=== PATIENT | male | born 1985 | race Caucasian/White ===

== ENCOUNTER 2016-10-06 09:50 | Emergency (ER) | payer OTHER ==
[~2016-10-06 09:50] MED LIST: BACTRIM DS1 TAB PO; CLEOCIN300 MG PO; KEFLEX500 M1 PO; PERCOCET1 TA1 PO
--- NOTE | 2016-10-06 11:44 | ED ORDER SUMMARY ---
..... Patient: BASHIR MACHADO OrderSheet [facility] VisitID: [id number] [place] [address] 31y, M Registration Date/Time: 10/06/2016 ORDER SHEET Weight: 90.7 kg Allergies: Bee stings, PCN GENERAL ORDERS: MEDICATION ORDERS: Dilaudid IM 2 mg (HIGH ALERT MEDICATION, NOW) (10:38 10/06/2016 Chaz GARCIA) (Ack 11:45 Bri R.N.) (12:01 Bri R.N.) Toradol IM 60 mg (NOW) (10:38 10/06/2016 Chaz GARCIA) (Ack 11:45 Bri R.N.) (12:00 Bri R.N.) IV FLUIDS: ORDER SHEET NOTES: [Electronically signed by Sara Iraheta R.N. (16:41 10/06/2016)] [Electronically signed by Leighann Terrell MD (13:44 10/13/2016)] [Electronically locked/signed by Sara Iraheta R.N. (16:41 10/06/2016)]
--- NOTE | 2016-10-06 11:44 | ED ORDER SUMMARY ---
..... Patient: BASHIR MACHADO OrderSheet [facility] VisitID: [id number] [place] [address] 31y, M Registration Date/Time: 10/06/2016 ORDER SHEET Weight: 90.7 kg Allergies: Bee stings, PCN GENERAL ORDERS: MEDICATION ORDERS: Dilaudid IM 2 mg (HIGH ALERT MEDICATION, NOW) (10:38 10/06/2016 Chaz GARCIA) (Ack 11:45 Bri R.N.) (12:01 Bri R.N.) Toradol IM 60 mg (NOW) (10:38 10/06/2016 Chaz GARCIA) (Ack 11:45 Bri R.N.) (12:00 Bri R.N.) IV FLUIDS: ORDER SHEET NOTES: [Electronically signed by Sara Iraheta R.N. (16:41 10/06/2016)] [Electronically signed by Leighann Terrell MD (13:44 10/13/2016)] [Electronically locked/signed by Sara Iraheta R.N. (16:41 10/06/2016)]
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
--- NOTE | 2016-10-13 13:44 | ED MAR SUMMARY ---
..... Medication Administration Record [facility] [address] [place] [address] Patient: BASHIR MACHADO Visit ID: [id number] 31y, M Weight: 90.7 kg Height/Length: 76 in BMI: 24.3 ALLERGIES: Bee stings, PCN Given 11:50 10/06/2016 Sara Iraheta, RCatrina. Medication Administered: DILAUDID [IM] (HYDROMORPHONE HCL PF), Dose: 2 mg IM. Medication Ordered: Dilaudid IM 2 mg (HIGH ALERT MEDICATION, NOW). Given 11:50 10/06/2016 Sara Iraheta, RBalajiN. Medication Administered: TORADOL [IM] (KETOROLAC TROMETHAMINE), Dose: 60 mg IM. Medication Ordered: Toradol IM 60 mg (NOW).
--- NOTE | 2016-10-13 13:44 | ED MED RECONCILIATION SUMMARY ---
Patient: BASHIR MACHADO Medication Reconciliation Report [facility] VisitID: [id number] [place] [address] 31y, M Registration Date/Time: 10/06/2016 Weight: 90.7 kg Height/Length: 76 in. BMI: 24.3 ALLERGIES: Bee stings, PCN The patient's Home Medications are listed below: THE FOLLOWING MEDICATIONS NEED TO BE RECONCILED: Ibuprofen Oral Suboxone Sublingual 20mg , daily, Last dose this AM The source(s) of the original Home Medication information: patient The following Medications were given to the patient in the Emergency Department: Toradol [IM] IM 60 mg, administered: 10/06/2016 11:50:00 AM Dilaudid [IM] IM 2 mg, administered: 10/06/2016 11:50:00 AM The following Medications were prescribed to the patient: Hydrocodone/APAP 5mg / 325mg: take 1-2 orally every 4 hours as needed for pain. Dispense twenty (20). No refill. -- Leighann Terrell MD
--- NOTE | 2016-10-13 13:44 | ED MAR SUMMARY ---
..... Medication Administration Record [facility] [address] [place] [address] Patient: BASHIR MACHADO Visit ID: [id number] 31y, M Weight: 90.7 kg Height/Length: 76 in BMI: 24.3 ALLERGIES: Bee stings, PCN Given 11:50 10/06/2016 Sara Iraheta, RCatrina. Medication Administered: DILAUDID [IM] (HYDROMORPHONE HCL PF), Dose: 2 mg IM. Medication Ordered: Dilaudid IM 2 mg (HIGH ALERT MEDICATION, NOW). Given 11:50 10/06/2016 Sara Iraheta, RBalajiN. Medication Administered: TORADOL [IM] (KETOROLAC TROMETHAMINE), Dose: 60 mg IM. Medication Ordered: Toradol IM 60 mg (NOW).
--- NOTE | 2016-10-13 13:44 | ED MED RECONCILIATION SUMMARY ---
Patient: BASHIR MACHADO Medication Reconciliation Report [facility] VisitID: [id number] [place] [address] 31y, M Registration Date/Time: 10/06/2016 Weight: 90.7 kg Height/Length: 76 in. BMI: 24.3 ALLERGIES: Bee stings, PCN The patient's Home Medications are listed below: THE FOLLOWING MEDICATIONS NEED TO BE RECONCILED: Ibuprofen Oral Suboxone Sublingual 20mg , daily, Last dose this AM The source(s) of the original Home Medication information: patient The following Medications were given to the patient in the Emergency Department: Toradol [IM] IM 60 mg, administered: 10/06/2016 11:50:00 AM Dilaudid [IM] IM 2 mg, administered: 10/06/2016 11:50:00 AM The following Medications were prescribed to the patient: Hydrocodone/APAP 5mg / 325mg: take 1-2 orally every 4 hours as needed for pain. Dispense twenty (20). No refill. -- Leighann Terrell MD
--- NOTE | 2016-10-13 13:44 | ED DISCHARGE INSTRUCTIONS ---
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 Lumbar radiculopathy present. (with acute exacerbation). No neurological deficit. INSTRUCTIONS No driving or operating machinery today. Sedative medication was given during your visit. Warnings: SEDATIVE MEDICATION: You were given sedative medication during your visit. Do not drive or operate dangerous machinery for 6 hours. GENERAL WARNINGS: Return or contact your physician immediately if your condition worsens or changes unexpectedly, if not improving as expected, or if other problems arise. Prescription Medications: Hydrocodone/APAP 5mg / 325mg: take 1-2 orally every 4 hours as needed for pain. Dispense twenty (20). No refill. Follow-up: Follow up with your doctor. Call for the next available appointment. Reason for referral: follow up ER visit for back pain, discuss MRI. Understanding of the discharge instructions verbalized by patient. ADDITIONAL INFORMATION Back Pain [Acute Or Chronic] Back pain is usually caused by an injury to the muscles or ligaments of the spine. Sometimes the disks that separate each bone in the spine may bulge and cause pain by pressing on a nearby nerve. Back pain may also appear after a sudden twisting/bending force (such as in a car accident), after a simple awkward movement, or lifting something heavy with poor body positioning. In either case, muscle spasm is often present and adds to the pain. Acute back pain usually gets better in one to two weeks. Back pain related to disk disease, arthritis in the spinal joints or spinal stenosis (narrowing of the spinal canal) can become chronic and last for months or years. Unless you had a physical injury (for example, a car accident or fall) X-rays are usually not ordered for the initial evaluation of back pain. If pain continues and does not respond to medical treatment, x-rays and other tests may be performed at a later time. Home Care: You may need to stay in bed the first few days. But, as soon as possible, begin sitting or walking to avoid problems with prolonged bed rest (muscle weakness, worsening back stiffness and pain, blood clots in the legs). When in bed, try to find a position of comfort. A firm mattress is best. Try lying flat on your back with pillows under your knees. You can also try lying on your side with your knees bent up towards your chest and a pillow between your knees. Avoid prolonged sitting. This puts more stress on the lower back than standing or walking. During the first two days after injury, apply an ICE PACK to the painful area for 20 minutes every 2-4 hours. This will reduce swelling and pain. HEAT (hot shower, hot bath or heating pad) works well for muscle spasm. You can start with ice, then switch to heat after two days. Some patients feel best alternating ice and heat treatments. Use the one method that feels the best to you. You may use acetaminophen (Tylenol) or ibuprofen (Motrin, Advil) to control pain, unless another pain medicine was prescribed. [NOTE: If you have chronic liver or kidney disease or ever had a stomach ulcer or GI bleeding, talk with your doctor before using these medicines.] Be aware of safe lifting methods and do not lift anything over 15 pounds until all the pain is gone. Follow Up with your doctor or this facility if your symptoms do not start to improve after one week. Physical therapy may be needed. [NOTE: If X-rays were taken, they will be reviewed by a radiologist. You will be notified of any new findings that may affect your care.] Get Prompt Medical Attention if any of the following occur: Pain becomes worse or spreads to your legs Weakness or numbness in one or both legs Loss of bowel or bladder control Numbness in the groin or genital area You have been given the following additional information: Back Pain (Acute Or Chronic) No driving or operating machinery today. Sedative medication was given during your visit. (Electronically signed by Leighann Terrell MD 10/13/2016 13:44)
== END 2016-10-06 11:55 | disposition home or self-care (01) ==
LOC: ED SRH 09:50
DX: M51.16 Intervertebral disc disorders with radiculopathy, lumbar region (principal); M51.36 Other intervertebral disc degeneration, lumbar region; G89.29 Other chronic pain